=== PATIENT | female | born 1950 | race Caucasian/White ===

== ENCOUNTER 2024-01-30 11:20 | Emergency (ER) | payer MEDICARE, OTHER ==
[~2024-01-30] VITALS: Ht 162.6 cm; Wt 68.2 kg
[~2024-01-30 11:20] MED LIST: ALEN70TA60 PO; HYDR12.55 PO; PROP40TA72 PO
[2024-01-30 13:27] VITALS: BP 128/86; PULSE 70; RESP 18; TEMP 97.4; O2SAT 98
== END 2024-01-30 13:29 | disposition home or self-care (01) ==
LOC: ER 11:21
DX: S30.0XXA Contusion of lower back and pelvis, initial encounter (principal); Z79.899 Other long term (current) drug therapy; W19.XXXA Unspecified fall, initial encounter; Y93.89 Activity, other specified; Y92.89 Other specified places as the place of occurrence of the external cause; Y99.8 Other external cause status
CPT/HCPCS: 72100; 72220; 99284